=== PATIENT | female | born 1955 | race Asian ===

== ENCOUNTER 2018-10-27 07:27 | Day surgery (SDC) | payer BC ==
[2018-10-27] MEDS ORDERED: FENTAnyl 50 MCG/ML VIAL (09:23)
[2018-10-27] MEDS ORDERED: MIDAZOLAM 1 MG/ML 2 ML INJ (10:11)
== END 2018-10-27 12:38 | disposition home or self-care (01) ==
LOC: GIL 07:27
DX: Z12.11 Encounter for screening for malignant neoplasm of colon (principal); K64.8 Other hemorrhoids
CPT/HCPCS: 45378